=== PATIENT | male | born 1980 | race Caucasian/White ===

== ENCOUNTER → 2019-04-02 16:47 | Outpatient (CLI) | payer BC, SELFPAY ==
--- NOTE | 2019-04-02 17:30 | MRI_ITS ---
STUDY: MRI LEFT ANKLE WITHOUT CONTRAST REASON FOR EXAM: Male, 38 years old. LEFT posterior tibial tendon tear, accessory navicular bone. Pain in arch of LEFT foot x 3 months, NKI TECHNIQUE: Standardized fat and water weighted pulse sequences were obtained in all 3 orthogonal planes. COMPARISON: None. FINDINGS: Normal subcutis adipose space. No marrow edema or fracture line seen. No osteochondral defects. No joint effusion. No plantar neuroma seen. No plantar fibroma seen. No ganglion cyst. Normal posterior tibialis tendon. Normal flexor digitorum longus tendon. Normal flexor hallucis longus tendon. Normal peroneus longus and brevis tendons. Normal tibialis anterior tendon. Normal extensor hallucis longus tendon. Normal extensor digitorum longus tendons. No tendon tears or thickening or tenosynovitis. Normal Achilles tendon and teno-osseous insertion. Normal plantar fascia. Normal plantar calcaneal tubercles. Normal intrinsic muscles of the rearfoot. Normal distal tibiofibular syndesmotic ligamentous complex. Normal lateral ligamentous complex. Normal subtalar ligaments and sinus tarsi. Normal deltoid ligamentous complexes. Normal plantar calcaneonavicular (spring) ligament. Normal tibiotalar articulation. Normal talar dome. Normal subtalar articulations. Normal talonavicular articulation. Normal calcaneocuboid articulation. Normal navicular-cuneiform articulations. MRI/Lower Ext Joint Only (Routine) IMPRESSION: Normal MRI of the ankle and rearfoot. Electronically Signed: Andrew Joseph MD at 0:00 EDT , Service support ,
== END ==
PROVIDERS: Referring Provider Podiatrist
DX: M76.822 Posterior tibial tendinitis, left leg (principal); Q66.89 Other specified congenital deformities of feet; M84.375A Stress fracture, left foot, initial encounter for fracture
CPT/HCPCS: 73721

== ENCOUNTER 2019-08-09 11:59 | Day surgery (SDC) | payer BC, SELFPAY ==
--- NOTE | 2019-08-09 | BON_PTH ---
PATIENT: BERNY DOLL LOC: [facility] [place] U[place][id number] AGE/SX: 39/M ROOM: RE08/09/[address]: Dr. Razia Brantley DPM : 1980 BED: DIS: 08/09/2019 SPEC #: [id number] RECD: 08/09/19 16:13 STATUS: CARLOS EDUARDO DIMA #: [id number] JEN: 08/09/19 00:[address]: Razia Brantley DEPT: SURGICAL PATHOLOGY RECD BY: Jim Villa ENTERED: 08/12/19 08:22 SP TYPE: Bone OTHR DR: No Primary Care Phys Tissues: Bone of foot, NOS Procedures: Decalcification bone/plaque Surgery Specimen Level III HEADER OPERATION: Foot excision of navicular bone with advancement and augment PRE-OP DIAGNOSIS: Accessory navicular; posterior tibialis tendonitis TISSUE SUBMITTED: Accessory bone MICROSCOPIC DIAGNOSIS Accessory bone: Pieces of bone with reactive changes, clinically accessory navicular bone. SJ:kin 08/15/19 MICROSCOPIC DESCRIPTION Slides are reviewed. GROSS DESCRIPTION Received in fixative is one container labeled with the patient's name and designated accessory bone. The specimen consists of two irregular fragments of cui-white bone that in aggregate measure 3.8 x 3 x 1 cm. Motor And Chassis Inspector sections are submitted in one cassette after decalcification. / AM:kin 08/12/19 TC:5 CPT: 98842, 73823
[2019-08-09] MEDS: Lactated Ringers 1,000 ML 80 ML IV (12:00)
[2019-08-09 12:22] VITALS: BP 132/59; PULSE 58; RESP 15; TEMP 36.5; O2SAT 100; BMI 27.1
[2019-08-09] MEDS: Cefazolin 2 GM in 0.9% Normal Saline 100 ML IV (13:24)
--- NOTE | 2019-08-09 13:30 | RAD_ITS ---
STUDY: Fluoroscopy- LEFT FOOT CLINICAL: Male, 39 years old. Excision of navicular bone TECHNIQUE: Multiple fluoroscopic views of the left view(s) of the foot. COMPARISON: None. FINDINGS: Multiple fluoroscopic views were obtained of the left foot during the procedure. 13 seconds fluoroscopy time given by the doctor of radiology. RAD/Foot min 3 Views IMPRESSION: 5 fluoroscopic images of a midfoot procedure in progress. Recommend correlation with procedure notes. Electronically Signed: Brenna Aguilar MD at 16:17 EST Tel , Service support ,
[2019-08-09] MEDS: Bupivacaine Mpf 0.5% 30 ML VIAL (15:06)
--- NOTE | 2019-08-09 15:07 | DCINST_ITS ---
Discharge Diet: No Restrictions Discharge Activity: May not drive while taking narcotic pain medications., May Shower - if shower bag is utilized, Use Crutches - or knee roller or walker Weight Bearing Status: No weight bearing Keep extremity elevated above heart level: Left Leg Call your doctor if your incision/area has: Continuous Slow Oozing, Sudden Increased Bleeding, Increased Pain/ Swelling, Increased Redness, Foul Smelling Discharge, Swelling at the incision site Call your doctor if you observe: Fever of 101 or Higher, Numbness or Tingling, Shortness of breath, Chest pain, Calf discomfort, Uncontrolled pain Cleanse incision/area with: Keep Dressing Clean & Dry Allergies/Adverse Reactions: Allergies No Known Allergies Allergy (Verified 08/09/19 12:20) Medications to take at Discharge NK 08/06/19 Primary Care Physician: Care Physician,No Primary [Primary Care Provider] - Test Results: Test results from this visit will be discussed in further detail at your follow- up appointment, if applicable. Please Follow Up With: Razia Brantley DPM When: [facility]. Call [phone] sooner if concerns. Proposed Discharge Date: 08/09/19
--- NOTE | 2019-08-09 15:09 | OP.PCM_ITS ---
Problem List (1) Other specified congenital deformities of feet Status: Acute Comment: accessory navicular type II (2) Posterior tibial tendinitis, left leg Status: Acute Report of Operation Date of Procedure: 08/09/19 Pre-Operative Diagnosis: Symptomatic accessory navicular, left foot Post-Operative Diagnosis: Symptomatic accessory navicular, left foot Surgery/Procedure Performed:: Excision of accessory navicular bone with posterior tibialis tendon augmentation and advancement, left foot Description of Surgical Findings:: Hemostasis: Well-padded pneumatic left thigh tourniquet, 315 mmHg, 54 minutes Materials: 3-0 nylon, 4-0 nylon, 2-0 Vicryl, 2 Arthrex fiber tack with 1.3 mm fiber wire suture tape Specimens: Accessory navicular bone, left foot Complications: None Findings: Adequate resection of accessory navicular and hypertrophic medial prominence of the navicular was achieved. The tendon appeared healthy and intact adjacent to this removed accessory bone. augmentation was secured and part of the posterior tibialis tendon was advanced / secured with fiber zahida suture anchors. The patient tolerated the procedure and anesthesia well. He was transported to the PACU with vital signs stable and vascular status intact to left lower extremity. Postoperative x-rays were reviewed with complete excision of the accessory navicular bone and the medial prominent navicular was also resected and rasped. No acute injuries were noted. He will be discharged home later today. His postoperative orders were entered electronically. inner diameter grinder tool: none - Surgeon: Razia Brantley DPM. Aluminum Pool Installer: Ivone Olivia PGY2 Type of Anesthesia:: General, Local - Preoperative: One-to-one mixture of 1% lidocaine plain and 0.5% Marcaine plain administered in tibial nerve and saphenous nerve block fashion, 15 cc Postoperative: One-to-one mixture of 1% lidocaine plain and 0.5% Marcaine plain administered in local infiltrative manner, 10 cc Specimen's removed: Accessory navicular bone left foot Estimated Blood Loss (mL): <100 mL Description of Procedure: Indications: 39-year-old male with no significant past medical history continues to complain of left arch pain with the onset of June 2016 that has been intermittent. His pain is significantly worsened over the past year and this has limited his ability to complete his job tasks and extracurricular athletic activities ([employer]). He has a prominent plantar medial osseous structure adjacent to the navicular consistent with his accessory navicular. This corresponds with radiographs and his MRI as well. The MRI demonstrates a type II accessory navicular with bone edema noted. There are no distinct tears in the posterior tibialis tendon however some thickening is noted at the retromalleolar level; this thickened site does not correspond with any clinical symptoms. His foot posture is fairly neutral. He has diffuse pain to palpation to the plantar medial arch and also to the prominent osseous structure. His neurovascular status is intact. He has failed conservative care and elects to proceed with surgical intervention at this time. His previous conservative care has included significant activity modifications, CAM Walker immobilization, aperture pads, custom orthotics, and rest. Preoperative indications, planned procedure, benefits, risk, complications, and anticipated healing time and management were discussed in detail with the patient. He understands and elects to proceed with surgery at this time. Informed surgical consent and limb were signed. No guarantees were made. He understands risk and complications may include but are not limited to following: pain, swelling, scarring, need for further surgery, allergic reaction, blood clot, delayed healing, infection, recurrence, over or under correction, hardware failure, loss of limb, function, life, chronic pain. His preoperative medical clearance was obtained by his primary care physician and his preoperative diagnostic data was reviewed without gross abnormalities. I answered all his questions. Procedure in detail: The patient was transported to the operating room via cart and placed on the operating room table in the supine position. Final verification of the patient, surgery, and limb designation was performed via the timeout procedure. A well- padded pneumatic left thigh tourniquet was placed. General anesthesia was initiated by the anesthesia team. Local anesthetic was administered by the podiatry team. IV antibiotics were administered preoperatively as ordered. The left lower extremity was prepped and draped in the usual aseptic manner. An Esmarch bandage was used to exsanguinate the limb and the tourniquet was inflated at this time. Surgery began the following manner: Attention was first directed to the medial aspect of the left foot in which a 4 cm linear incision was made in the skin just dorsal to the palpably prominent accessory navicular bone. Blunt dissection was next performed down to the posterior tibial tendon sheath area taking care to identify, protect, and retract all neurovascular structures at this point and throughout the remainder of surgery. This sheath was entered with a rent and this was carefully reflected off of the accessory navicular site. The accessory navicular bone was carefully scalloped from the adjacent posterior tibial tendon and main body of the navicular. This was removed in total with minimal disruption of the posterior tibialis tendon was noted. The hypertrophic medial aspect of the navicular was also resected with an osteotome and mallet to achieve a even medial foot border. This was rasped down and copious saline irrigation was performed. Next, two arthrex fiber zahida suture anchors were applied into the navicular to reef down the adjacent remaining posterior tibialis tendon at the insertion point with his foot in a balanced slightly plantarflexed and inverted position. It was not deemed necessary to perform any flexor digitorum longus tendon transfers at this time due to minimal posterior tibialis tendon disruption. After the posterior tibialis tendon was appropriately advanced and reefed down, the overlying deeper soft tissue structures including the sheath were reapproximated with nylon to fully cover and secure the bone anchors that were placed. Intraoperative fluoroscopy was utilized to confirm adequate resection of the accessory navicular bone and also hypertrophic adjacent medial navicular margin was performed. This was also used to confirm proper anchor placement. No acute injuries were noted. Next, deep closure was achieved with Vicryl. The tourniquet was deflated at this time and brisk capillary refill time was noted to all digits of the left foot. Minimal cauterization was needed and direct pressure was applied to maintain hemostasis. The skin was next reapproximated utilizing horizontal mattress and simple suture technique with 4- 0 nylon. A postoperative dressing consisting of Betadine soaked Adaptic, 4 x 4 gauze, and Kerlix was applied. Additionally, a well-padded posterior mold splint was applied with the foot in a slight plantarflexed inverted position and this was secured with Ghassan wraps. After procedure: The patient tolerated the procedure and anesthesia well. He was transported to PACU with vital signs stable and vascular status intact to the left lower extremity. He was advised to maintain a strict nonweightbearing status to the left foot and to use an assistive device as needed. He already has his assistive walkling device at home; crutches. I also provided a prior prescription for a knee roller. He was advised to ice and elevate for pain and inflammation management. He was also provided with postoperative pain medication and was advised on safe and proper use (norco). Postoperative x-rays were reviewed prior to leaving operating room as noted. His postoperative orders were entered electronically. [facility]. Razia Brantley DPM, [facility] - Complications None - Admit VTE Documentation VTE Present on Admission: No VTE Mechan Device Prophylaxis: SCD's VTE Pharm Prophylaxis ordered?: No Reason prophylaxis not ordered:: Procedure Not Indicated
[2019-08-09 15:16] VITALS: BP 131/65; BP 132/59; PULSE 59; RESP 16; TEMP 37.2; O2SAT 96
[2019-08-09 15:30] VITALS: BP 124/73; BP 132/59; PULSE 58; RESP 16; O2SAT 99
[2019-08-09 15:45] VITALS: BP 132/59; BP 138/84; PULSE 61; RESP 16; O2SAT 100
--- NOTE | 2019-08-09 15:50 | RAD_ITS ---
STUDY: X-RAY - LEFT FOOT CLINICAL: Male, 39 years old. POST OP LEFT S/P ACCESSORY NAVICULAR EXCISION TECHNIQUE: 4 view (s) of the foot. COMPARISON: None. FINDINGS: Normal talus, calcaneus, and tarsal bones. Normal visualized subtalar, talonavicular, calcaneocuboid, tarsometatarsal articulations. Normal metatarsi. Normal metatarsophalangeal joint of the great toe. Normal tibial and fibular sesamoid bones. Normal interphalangeal joint of the great toe. Normal phalanges of the great toe. Normal second through fifth metatarsophalangeal joints. Normal interphalangeal joints and phalanges of the lesser toes. *Operative change medial foot. Partially visualized due to overlying boot/splenic. RAD/Foot min 3 Views IMPRESSION: Postoperative bandaging material. Gas in the soft tissues adjacent to the navicular bone. No visualized fracture. Operative change. Electronically Signed: Brenna Aguilar MD at 16:02 EST Tel , Service support ,
[2019-08-09 15:51] VITALS: BP 132/59; BP 137/84; PULSE 59; RESP 16; TEMP 36.8; O2SAT 100
[2019-08-09 16:12] VITALS: BP 132/59
== END 2019-08-09 16:21 | disposition home or self-care (01) ==
LOC: SDC 12:01 → AC 12:05
PROVIDERS: Referring Provider Podiatrist; Visit Provider Podiatrist
PROC: (CPT 28899; principal; 2019-08-09 13:15)
DX: Q74.2 Other congenital malformations of lower limb(s), including pelvic girdle (principal); M76.822 Posterior tibial tendinitis, left leg; K21.9 Gastro-esophageal reflux disease without esophagitis
CPT/HCPCS: 01470; 28238; 73630; 76000; 88304; 88311; J7120; J2405

== ENCOUNTER 2020-01-01 11:00 | Outpatient (RCR) | payer BC, SELFPAY ==
--- NOTE | 2019-09-17 15:38 | HP.PTEVAL ---
Patient's Visit Information BERNY DOLL is a 39 year old M referred to Physical Therapy by Razia Brantley DPM with a diagnosis of S/P ACCESSORY NAVICULAR EXCISION WITH ADVANCEMENT OF POSTERIOR TIBIALS TEND. Date of Evaluation: 09/17/19 Physical Therapist: Avni Lacy, PT, Cert MDT, OCS - Visit Plan Frequency: 2x /Week Duration: 2 Months Plan: PATIENT AMBULATES WITH CAM BOOT 75% WITH CRUTCHES RTD IN OCTOBER WITH PROGRESSION OF WB. PT INTERVENTIONS INTIALLY ROM ANKLE/FOOT ,FLEXABILITY CALF ,STRENGTHENING ANKLE/HIP/KNEE /INTRINSTRICS OF FOOT PROGESS TO WB ACTIVITIES AND PROGRESSION OF GAIT/PROPRIOCEPTION/FUNCTIONAL STRENGTHENING PER MD ORDER - Subjective Subjective: This 39 y/o male presents to physical therapy with S/P accessory navicular excision with advancement of posterior tibilas tendon on 08/09/[address] Brantley at [facility] outpatient. Patient was d/c with splint NWB with crutches then 2 weeks with boot and cont with NWB. Patient progressed with 50% 2weeks ago and currently PWB 75% . Plan to RTD OCTOBER 09.Patient had symptoms for almost 1 year and boot on for the past year.Eventually,had MRI. Patient has minimal edema. Intitially had pain but subsided . Patient has some parathesia toes . Patient takes boot off at night. Patient has limitations with walking and standing . Patient condition affects ability to perform job demands and housework tasks. Patient condition affects QOL . Patient RTW 2months but may need longer. SOCIAL: . VOCATION: [employer] - Objective POSTURE: pes planus calcaneal valgus. SKIN: inscion well approximate. EDEMA: trimalleoar 54 cm,met heads 24 cm. GAIT: ambulates with crutches with PWB RLE 75% with CAM boot. PROPRIOCEPTION: NA. AROM: dorsiflexion 4 degrees from 0 ,planterflexion 50 degrees,eversion 3 degrees,inversion 5 degrees. MMT:eversion/inversion 2+/5,planterflexion 2+/5,dorsiflexion 3+/5 - Goals Goal 1:: Patient to be Independant with HEP. Goal Time Frame: 8-12 Weeks Goal 2:: Patient to increase AROM by 5-10 degrees or > to improve function. Goal Time Frame: 4-6 Weeks Goal 3:: Patient to improve strength ankle stabilizers to 4/5 except G-S 4-/5 to improve gait Goal Time Frame: 4-6 Weeks Goal 4:: Patient to normalize gait pattern Goal Time Frame: 4-6 Weeks Goal 5:: Patient improve proprioception left = right symmtrical to improve gait Goal 6:: Patient improve LFES SCORE by 20 points or > to improve function and QOL. Goal Time Frame: 4-6 Weeks - Rehabilitation Potential Physical Therapy Diagnosis: Patient underwent s/p surgery accessory navicular excision with advancement of posterior tibialis tendon 08/09/19 with poor ROM ,impaired gait ,proprioception and using CAM boot Rehabilitation Potential: Good - Anticipated Interventions Patient/Client Instruction: Educate patient on: Condition, Plan of Care For the Purpose of:: To decrease pain, To increase ROM, To improve muscle performance and motor function, To improve ability to perform ADL's, To increase tolerance to activity/condition/position, To improve ability of physical actions for home/community/work/leisure, To improve health of tissue, To decrease soft tissue restriction, To increase flexibility/ROM, To improve endurance, To improve safety with gait, To reduce risk of recurrence, To improve ability to perform tasks related to life management Therapeutic Exercise to Include: Strength training, Balance training, Agility training, Postural training, Flexibilty training, Gait and locomotor training, Passive ROM, Active ROM Comment: ANKLE /HIP KNEE PROGRESSION OF WB ACTIVITIES WITH CAM BOOT For the Purpose of:: To decrease pain, To increase ROM, To improve muscle performance and motor function, To improve ability to perform ADL's, To increase tolerance to activity/condition/position, To improve ability of physical actions for home/community/work/leisure, To improve health of tissue, To decrease soft tissue restriction, To increase flexibility/ROM, To improve balance, To improve safety with gait, To improve health and function, To improve ability to perform tasks related to life management Functional Training to Include: Functional sports training For the Purpose of:: To improve muscle performance and motor function, To improve ability to perform ADL's, To increase tolerance to activity/condition/position, To decrease level of supervision to perform tasks TENS: Yes IF ES: Yes Cryotherapy (ice pack, ice massage): Yes Thermo therapy (hot pack): Yes For the Purpose of:: To decrease pain, To increase ROM, To improve muscle performance and motor function, To improve health of tissue, To decrease soft tissue restriction, To increase flexibility/ROM Thank you for the opportunity to evaluate your patient. For Medicare and Medicare HMO plans, please review the plan of care and approve it. It will need to be FAXED BACK to us at [phone] for Medicare purposes. For Medicare only, by signing this I certify the plan of care. Please let me know if there are questions or concerns regarding this plan of care. Physician Signature: Date:
--- NOTE | 2020-02-25 14:53 | HP.PTDCSUM ---
It has been my pleasure to treat BERNY DOLL referred by Dr. Razia Brantley, [place], with the diagnosis of S/P ACCESSORY NAVICULAR EXCISION WITH ADVANCEMENT OF POSTERIOR TIBIALS TEND for a total of 27 visit(s). Discharge Date: Please see the following information for a summary of their discharge status. Subjective: Doing well ..no soreness .Plan to see MD 01/05 possible RTW Left Ankle Pain Intensity (Out of 10): 0 % Improvement: 80 Objective/Function: Sara tx well no soreness in plantarfascia today Goal 1:: Patient to be Independant with HEP. Goal 2:: Patient to increase AROM by 5-10 degrees or > to improve function. Goal 3:: Patient to improve strength ankle stabilizers to 4/5 except G-S 4-/5 to improve gait Goal 4:: Patient to normalize gait pattern Goal 5:: Patient improve proprioception left = right symmtrical to improve gait Goal 6:: Patient improve LFES SCORE by 20 points or > to improve function and QOL. Plan: RTD. PT INTERVENTIONS INTIALLY ROM ANKLE/FOOT ,FLEXABILITY CALF ,STRENGTHENING ANKLE/HIP/KNEE /INTRINSTRICS OF FOOT PROGESS TO WB ACTIVITIES AND PROGRESSION OF GAIT/PROPRIOCEPTION/FUNCTIONAL STRENGTHENING If there are questions or concerns regarding this patient's physical therapy, please feel free to call me at [phone]. Thank you for the referral of this patient. Sincerely, Avni Lacy, PT, Cert MDT, OCS
== END 2020-01-01 19:00 | disposition home or self-care (01) ==
LOC: PT 11:00
PROVIDERS: Referring Provider Podiatrist; Visit Provider Podiatrist
DX: Z98.890 Other specified postprocedural states (principal)
CPT/HCPCS: 97110; 97161

== ENCOUNTER → 2020-01-24 17:53 | Outpatient (CLI) | payer BC, SELFPAY | PROVIDERS: PCP Nurse Practitioner Family; Referring Provider Nurse Practitioner Family; Visit Provider Nurse Practitioner Family | DX: Z20.828 Contact with and (suspected) exposure to other viral communicable diseases (principal) | CPT/HCPCS: 87635; 94799; C9803; U0003 ==

== ENCOUNTER 2021-07-19 10:30 | Outpatient (RCR) | payer OTHER, SELFPAY ==
--- NOTE | 2021-06-24 11:00 | HP.PTEVAL ---
Patient's Visit Information BERNY DOLL is a 40 year old M referred to Physical Therapy by REVA ZELAYA with a diagnosis of LUMBAR DDD, RADICULOPATHY AND VERTEBROGENIC LBP. Date of Evaluation: 06/24/21 Physical Therapist: Patricia Johnson, PT, Cert MDT - Visit Plan Frequency: 1x/Week Duration: 4 Weeks Plan: INSTRUCT IN USE OF LUMBAR SUPPORT IN SITTING AND FREQUENT BREAKS FROM SITTING. INCLUDE HIP IR STRETCHING TOLERATED. AQUATIC THERAPY FOR PAIN RELEIF, POSTURE CORRECTION/STRENGTHENING, INSTRUCTION IN APPROPRIATE BODY MECHANICS AND ACTIVITY MODIFICATIONS. DLS STARTING WITH A NEUTRAL SPINE PROGRESSING ROM TOLERATED. KATHERIN LE ROM, STRETCHING AND STRENGTHENING. HEP INSTRUCTION. 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 MAINLY SITTING. NO HEAVY LIFTING, BENDING OR TWISTING AT WORK. Disability: NO. Present symptoms: KATHERIN LOW BACK PAIN AND TIGHTNESS. INTERMITTENT SHOCKS DOWN THE LEFT LEG. WHEN IT GETS INFLAMMED I CAN'T MOVE. Present since: ABOUT 2+ YEARS BUT GETTING WORSE THE LAST COUPLE MONTHS. Pain Scale: WORST 9/10, LEAST 1-2/10. Currently: 06/14. Commenced as a result of: NO APPARENT REASON. Symptoms at onset: LBP AND TIGHTNESS. Worse: BENDING OVER, REPETITIONS OF THINGS, WORKING OUT, STANDING. Better: TUCKING PELVIS IN STANDING, LYING DOWN, PUSHING ON IT. Disturbed sleep: NO. Previous history/Previous treatment: GENERAL BODY TIGHTNESS. NO BACK SURGERY. NO BACK INJECTIONS. HAS BEEN GOING TO [facility] MY WHOLE LIFE OFF AND ON. ABOUT 1X/WK X 4 WEEKS RECENTLY AT [facility]. NO PRIOR PT FOR BACK. Coughing/sneezing/straining: NEGATIVE. Gait: NORMAL. BACK TIGHTENS UP RUNNING SO DOESN'T RUN VERY OFTEN. Difficulty initiating urination: NO. DENIES BOWEL AND BLADDER DYSFUNCTION. Accidents: NO. Unexplained weight loss: NO. Imaging: X-RAY YESTERDAY. PATIENT REPORTS HE WAS TOLD THE X-RAY AT [facility] WAS NORMAL. MRI RECOMMENDED BUT PT NEEDED FIRST PER PATIENT REPORT. PMH/Recent major surgery: RIGHT RCR 2015, LEFT FOOT SURGERY 2019. OTHER: GOES TO [employer] [facility] 3-5 DAYS A WEEK. REFERRED TO PT BY DR. REVA ZELAYA FROM [facility] IN [place]. - Objective Sitting/Standing Posture: GOOD. Lordosis: NORMAL. Lateral shift: NO. Relevant shift: N/A. Active Correction of posture: BETTER. Other Observations: INDEP GAIT AND TRANSFERS. Motor deficit: KATHERIN LE'S 5/5. Sensory deficit: KATHERIN LE LIGHT TOUCH SENSATION GROSSLY INTACT AND SYMMETRICAL. ROM deficit: TIGHT KATHERIN LE HS'S AND ESPECIALLY HIP IR'S KATHERIN. Reflexes: UNABLE TO ELICIT KATHERIN LE DTR'S. Dural Signs: NEGATIVE KATHERIN LE'S. Lumbar mvmt loss: flex - NIL. ext - MIN. R SG - MIN. L SG - MIN. PATIENT DENIES INCREASED PAIN WITH LUMBAR ROM TESTING ALL PLANES. Core strength: FAIR TO GOOD. Palpation: NO ACUTE LUMBAR, HIP OR SACRAL TENDERNESS INCLUDING SI JOINT REGIONS. TREATMENT: INTRODUCTION TO NEUROMUSCULAR REEDUCATION - RETRAINING OF MVMT AND POSTURE FOR SITTING, LYING AND STANDING ACTIVITIES. - Balance/Special Test Scores Oswestry Low Back Score: 8 - Goals Goal 1:: DECREASE C/O LOW BACK AND LLE SX'S. Goal Time Frame: 4-6 Weeks Goal 2:: IMPROVE LIFTING, SITTING, STANDING, WORK, AND FITNESS FUNCTION. Goal Time Frame: 4-6 Weeks Goal 3:: INSTRUCT IN PROPHYLAXIS Goal Time Frame: 4-6 Weeks - Anticipated Interventions Patient/Client Instruction: Educate patient on: Condition, Plan of Care, Risk Factors For the Purpose of:: To improve self management Therapeutic Exercise to Include: Body mechanics, Postural training, Flexibilty training, Neuromotor development, In an aquatic setting, Dynamic Lumbar Stabilization For the Purpose of:: To decrease pain, To increase ROM, To improve muscle performance and motor function, To increase tolerance to activity/condition/position, To improve ability of physical actions for home/community/work/leisure Thank you for the opportunity to evaluate your patient. For Medicare and Medicare HMO plans, please review the plan of care and approve it. It will need to be FAXED BACK to us at [phone] for Medicare purposes. For Medicare only, by signing this I certify the plan of care. Please let me know if there are questions or concerns regarding this plan of care. Physician Signature: Date:
--- NOTE | 2021-07-19 12:36 | HP.PTREVAL_ITS ---
REVA ZELAYA, It has been my pleasure to treat BERNY DOLL over the last 5 visits for LUMBAR DDD, RADICULOPATHY AND VERTEBROGENIC LBP. Please see the progress note below for an update on the physical therapy plan of care! Subjective: PATIENT REPORTS HE CAN STILL FEEL THE PAIN BUT SLIGHTLY BETTER. HASN'T HAD A BAD FLARE UP SINCE STARTING PT. BETTER WITH SOME OF THE MODIFICATIONS HE IS LEARNING. INQUIRING ABOUT CONTINUING PT. REPORTS THE MEDICINE HE IS ON MIGHT BE HELPING HIS PAIN. REPORTS WEIGHT LIFTING AND RUNNING INFLAME HIS SX'S. Objective/Function: PATIENT IS MAKING SLOW PROGRESS WITH PT. HE HAS COMPLETED THE 4 PT VISITS ORDERED BY HIS PHYSICIAN AND IS APPROPRIATE FOR PHYSICIAN RE- ASSESSEMENT AT THIS TIME. Case Conference with Ol[facility] today. Aquatic Therapy Treatment Today: Progressing concepts of neutral spine OUTSIDE of vertical today. Adding sit to stands/squats and step ups today with education on good body mechanics with hip hinge and neutral spine. Some difficulty keeping COM over YAO - cues for appropriate hip hinge for wt distribution. At times, demo'ing excessive LB ext, particularly with UE raising. Demo'ing excessive ER of BLAT hips with addition of steps ups. Also demo'ing Trendelenburg on L with LLE step ups. Perturbations of water making the lunges very challenging. Instructed in and added prone isaak hip internal rotation stretching and isaak sdly reverse clams for hip internal rotation strengthening to HEP. Plan Plan: HOLD CHART UNTIL PHYSICIAN RE-ASSESSEMNT. Balance/Gait/Functional tests - Balance/Special Test Scores Oswestry Low Back Score: 8 Goals Goal 1:: DECREASE C/O LOW BACK AND LLE SX'S. Goal Time Frame: 4-6 Weeks Goal Progress: Progressing Goal 2:: IMPROVE LIFTING, SITTING, STANDING, WORK, AND FITNESS FUNCTION. Goal Time Frame: 4-6 Weeks Goal Progress: Progressing Goal 3:: INSTRUCT IN PROPHYLAXIS Goal Time Frame: 4-6 Weeks Goal Progress: Progressing Anticipated Interventions Patient/Client Instruction: Educate patient on: Condition, Plan of Care, Risk Factors For the Purpose of:: To improve self management Therapeutic Exercise to Include: Body mechanics, Postural training, Flexibilty training, Neuromotor development, In an aquatic setting, Dynamic Lumbar Stabilization For the Purpose of:: To decrease pain, To increase ROM, To improve muscle performance and motor function, To increase tolerance to activity/condition/position, To improve ability of physical actions for home/community/work/leisure Please do not hesitate to contact me at [phone] by phone or if you have questions or concerns regarding this new plan of care! Sincerely, Patricia Johnson, PT, Cert MDT
== END 2021-07-19 19:00 | disposition home or self-care (01) ==
LOC: PT 10:30
PROVIDERS: PCP Nurse Practitioner Family
DX: M51.16 Intervertebral disc disorders with radiculopathy, lumbar region (principal); M54.51 Vertebrogenic low back pain
CPT/HCPCS: 97113; 97161; 97164

== ENCOUNTER 2021-09-18 08:43 | Outpatient (CLI) | payer OTHER, SELFPAY ==
--- NOTE | 2021-09-18 08:50 | MRI_ITS ---
STUDY: MRI LEFT ANKLE WITHOUT CONTRAST REASON FOR EXAM: Male, 41 years old. LEFT ANKLE / FOOT PAIN, PTT,ACCESSORY NAVICULAR BONE ANCHOR left ankle surgery 09/2019 ,accessory bone navicular area removed, scar medial tarsal, still has in this area TECHNIQUE: Standardized fat and water weighted pulse sequences were obtained in all 3 orthogonal planes. COMPARISON: Left foot x-ray dated August 09, 2019 FINDINGS: Normal subcutis adipose space. Prior distal posterior tibialis tendon repair and anchoring with mild signal abnormality and irregularity of the fibers, and anchors as well as tract church at the periphery of the navicular bone. Minor overlying postsurgical fibrosis noted. No focal fibroma is seen. The proximal aspect of the posterior tibialis tendon are normal. A small ankle joint effusion is present. No marrow edema or osteochondral defect is seen. Normal flexor digitorum longus tendon. Normal flexor hallucis longus tendon. Normal peroneus longus and brevis tendons. Normal tibialis anterior tendon. Normal extensor hallucis longus tendon. Normal extensor digitorum longus tendons. Normal Achilles tendon and teno-osseous insertion. Normal plantar fascia. Normal plantar calcaneal tubercles. Normal intrinsic muscles of the rearfoot. Normal distal tibiofibular syndesmotic ligamentous complex. Normal lateral ligamentous complex. Normal subtalar ligaments and sinus tarsi. Normal deltoid ligamentous complexes. Normal plantar calcaneonavicular (spring) ligament. Normal tibiotalar articulation. Normal talar dome. Normal subtalar articulations. Normal talonavicular articulation. Normal calcaneocuboid articulation. Normal navicular-cuneiform articulations. MRI/Lower Ext Joint Only (Routine) IMPRESSION: 1. Prior distal posterior tibialis tendon repair and anchoring with mild signal abnormality and irregularity of the fibers, and anchors as well as tract church at the periphery of the navicular bone. Minor overlying postsurgical fibrosis noted. No focal fibroma is seen. The proximal aspect of the posterior tibialis tendon are normal. 2. A small ankle joint effusion is present. No marrow edema or osteochondral defect is seen. Electronically Signed: Andrew Joseph MD at 15:31 EDT ,
== END 2021-09-18 23:59 | disposition home or self-care (01) ==
PROVIDERS: Visit Provider Podiatrist
DX: M76.822 Posterior tibial tendinitis, left leg (principal); M79.672 Pain in left foot; Q66.89 Other specified congenital deformities of feet
CPT/HCPCS: 73721

== ENCOUNTER → 2023-01-23 | Outpatient (CLI) | payer OTHER, SELFPAY ==
[2023-01-23 15:08] LABS: Absolute Lymphocyte Count 1.36 X10^3/uL (0.83-4.51); Absolute Neutrophil Count 2.4 X10^3/uL (2.0-7.7); Basophil# 0.03 X10^3/uL; Basophil% 0.6 % (0-1); Eosinophil# 0.14 X10^3/uL; Hematocrit 44.2 % (40-54); Hemoglobin 14.2 g/dL (13.0-16.5); Lymphocyte # 1.36 X10^3/ul (0.83-4.51); Lymphocyte % 29.4 % (19-41); Mean Corp Hgb Conc 32.1 g/dL (32-36); Mean Corpuscular Hgb 29.8 pg (27.0-32.0); Mean Corpuscular Volume 92.9 fL (80-94); Mean Platelet Vol. 11.6 fl (6.2-12.0); Monocyte# 0.74 X10^3/uL; NRBC Flagged by Analyzer 0 % (0-5); Neutrophil # 2.35 X10^3/uL (2.7-7.7); Neutrophil % 50.8 % (47-70); Platelet Count 230 K/mm3 (150-450); RBC Distribution Width CV 13.2 % (11.6-14.6); RBC Distribution Width SD 45.3 fl (35.1-43.9); Red Blood Count 4.76 M/mm3 (4.6-6.2); White Blood Count 4.6 K/mm3 (4.4-11.0)
[2023-01-23 16:01] LABS: Anion Gap 5 (5-15); BUN 26 mg/dL (7-18); BUN/Creat Ratio 20.2 RATIO (10-20); CPK Total, Creatine Kinase 568 U/L (39-308); Calcium,Total 9.5 mg/dL (8.5-10.1); Chloride 105 mmol/L (98-107); Creatinine, Serum 1.29 mg/dL (0.70-1.30); EST Glomerular Filtration Rate 65 mL/min (>60); Est Glom Filt Rate - Afr Amer 79 mL/min (>60); Glucose 88 mg/dL (74-106); Magnesium 2.6 mg/dL (1.6-2.6); Potassium 3.9 mmol/L (3.5-5.1); Sodium Level 140 mmol/L (136-145)
[2023-01-26 16:09] LABS: Creatine Kinase BB 0 % (0); Creatine Kinase MB 0 % (0-3); Creatine Kinase MM 100 % (97-100); Creatine Kinase,Total,Serum 572 U/L (49-439); Macro I 0 % (Not Observed); Macro II 0 % (Not Observed)
== END | disposition home or self-care (01) ==
LOC: MTLAB 12:36
PROVIDERS: PCP Family Medicine; Referring Provider Family Medicine; Visit Provider Family Medicine
DX: R42 Dizziness and giddiness (principal)
CPT/HCPCS: 36415; 80048; 82550; 82552; 83735; 85025

== ENCOUNTER → 2023-02-08 | Outpatient (CLI) | payer OTHER, SELFPAY ==
--- NOTE | 2023-02-08 14:39 | STRESSREP ---
Stress Test Report Exercise stress test. 42-year-old man with a history of chest pain Stress protocol: Resting EKG demonstrates normal sinus rhythm with a rate of 61 bpm resting blood pressure is 122/88 mmHg. The patient exercised according to the regular Augustine protocol for a total duration of 17 minutes attaining a maximum heart rate of 179 bpm which was 100% of maximum predicted heart rate; the maximum workload was 20.3 metabolic equivalents. At rest there were no ST or T wave changes noted to suggest ischemia and at peak exercise upsloping ST changes only were noted which did not meet the criteria for ischemia. No clinical angina was noted the test was terminated due to the target heart rate being achieved/fatigue. The peak blood pressure was 164/86 mmHg. Rate-pressure product was 27,200. Conclusion Normal exercise myocardial perfusion stress test at a high workload with excellent aerobic capacity.
== END | disposition home or self-care (01) ==
LOC: CVS 10:50
PROVIDERS: PCP Family Medicine; Referring Provider Family Medicine; Visit Provider Family Medicine
DX: R06.02 Shortness of breath (principal)
CPT/HCPCS: 93017